=== PATIENT | female | born 1955 ===

== ENCOUNTER 2024-08-08 10:37 | Emergency (ER) | payer MEDICARE, SELFPAY ==
--- NOTE | ~2024-08-08 | CT_ITS ---
EXAMINATION: CT ABDOMEN AND PELVIS WITH CONTRAST CLINICAL INFORMATION: Right upper quadrant pain. Status post cholecystectomy. COMPARISON: None available. TECHNIQUE: Multidetector volumetric images were obtained from the superior aspect of the liver through the pubic symphysis following administration 85 mL of Omnipaque 350 intravenous contrast. Sagittal and coronal reformatted images were obtained on the technologist's workstation. Oral contrast: No This CT examination was performed using dose optimization techniques as appropriate, variously including the following: *Automated exposure control *Adjustment of mA and/or kV according to patient size (this includes techniques or standardized protocols for targeted exams where dose is matched to indication/reason for exam; i.e. extremities or head) *Use of iterative reconstruction technique. DLP: 602 mGy centimeter. FINDINGS: LUNG BASES: Atelectasis, lung bases. LIVER, GALLBLADDER, AND BILIARY TREE: There is a 1.9 cm fluid density at the gallbladder fossa. Mild intrahepatic biliary ductal dilatation. The portal veins, hepatic veins and intrahepatic portion of the IVC are patent. Liver measures 17 cm. Cholecystectomy. Common bile duct measures 4 mm. No gross intraluminal hyperdensity. PANCREAS: No focal lesion. No peripancreatic fluid collection. No main pancreatic ductal dilatation. SPLEEN: 9 cm. No focal lesion. ADRENAL GLANDS: No nodular lesions. KIDNEYS AND URETERS: No hydronephrosis. No gross nephrolithiasis. No gross renal mass. Normal enhancement pattern. BLADDER: Fluid-filled nearly collapsed. GASTROINTESTINAL TRACT: Small hiatal hernia. Gas and fluid-filled mildly prominent proximal jejunal loops. Edema pattern/wall thickening in the gastric antrum. No intestinal obstruction pattern. The terminal ileum is normal. I cannot clearly identify the appendix, no mesocecum edema pattern. No pneumoperitoneum. Few scattered diverticula, sigmoid colon and descending colon. No overt ascites. Mild mesenteric edema pattern. ABDOMINAL WALL: Small fat-containing umbilical hernia. LYMPH NODES: No specific prominent mesenteric. VASCULAR: Throughout the abdominal aorta wall and iliac arteries. No gross aneurysm or dissection abdominal aorta. PELVIC VISCERA: 1 cm fat density in the inferior aspect of the left adnexa and in proximity to the inferior sigmoid colon wall. OSSEOUS STRUCTURES: Sclerosis and vacuum phenomenon both sacroiliac joints. Grade 1 anterolisthesis L4-5 on a degenerative basis. Marginal osteophyte formation and decreased intervertebral disc height and vacuum phenomenon, L5-S1. Osteopenia versus osteoporosis. Probable intraosseous hemangioma, T10 vertebra. CT/CT abdomen pelvis w IV con IMPRESSION: Concerning phlegmon versus abscess versus biloma, gallbladder fossa/surgical site. Regional ileus. Peptic ulcer disease, gastric antrum cannot be excluded. Diverticular disease, left hemicolon. Small fat-containing umbilical hernia. Questionable dermoid, left adnexa. Multilevel thoracolumbar spondylosis resulting in grade 1 anterolisthesis L4-5. Fleischner guidelines were followed. Electronically signed by: Jere Castillo MD 08/08/2024 12:45 PM EDT
[2024-08-08 10:44] VITALS: BP 196/77; PULSE 83; RESP 18; TEMP 36.9; O2SAT 95; BMI 27.4
--- NOTE | 2024-08-08 10:51 | ECG_ITS ---
Test Reason : upper ABD pain Blood Pressure : */* mmHG Vent. Rate : 85 BPM Atrial Rate : 85 BPM P-R Int : 144 ms QRS Dur : 64 ms QT Int : 374 ms P-R-T Axes : 27 -5 61 degrees QTcB Int : 445 ms Normal sinus rhythm Normal ECG No previous ECGs available Referred By: Generic ED Physician Electronically Signed By: COLT SHARMA MD
[2024-08-08 11:02] LABS: MANUAL DIFF FLAG NO
[2024-08-08 11:05] LABS: Basophils Absolute Auto 0.1 X10*3/uL (0.0-0.2); Basophils Percent Auto 0.8 % (0-2); Eosinophils Absolute Auto 0.4 X10*3/uL (0.0-0.4); Hematocrit 42.9 % (37.0-47.0); Hemoglobin 13.4 g/dl (12.0-16.0); Imm Gran Abs Auto 0.04 X10*3/uL (0.00-0.03); Imm Gran Pct Auto 0.5 % (0.0-0.4); Lymphocytes Absolute Auto 2.4 X10*3/uL (1.2-4.9); Lymphocytes Percent Auto 28.2 % (20-40); Mean Corpuscular HGB Conc 31.2 g/dl (31.0-35.0); Mean Corpuscular Hemoglobin 27.6 pg (27.0-33.0); Mean Corpuscular Volume 88.3 fL (80.0-98.0); Monocytes Absolute Auto 0.6 X10*3/uL (0.1-1.2); Monocytes Percent Auto 7.2 % (2-11); Neutrophils Percent Auto 58.3 % (45-73); Platelet Count 247 X10*3/uL (160-400); Red Blood Count 4.86 X10*6/uL (4.20-5.50); Red Cell Distribution Width 14.3 % (11.0-16.0); White Blood Count 8.6 X10*3/uL (4.8-10.8)
[2024-08-08 11:19] LABS: Appearance Urine Clear; Color Urine Dark Yellow; Glucose Urine UA Negative (Negative); Leukocyte Esterase Urine Negative (Negative); Nitrite Urine Negative (Negative); Urine Blood Negative (Negative); Urine Ketones Trace mg/dL (Negative); Urine Protein Trace mg/dL (Neg-Trace)
[2024-08-08 11:22] LABS: Alanine Aminotransferase 33 U/L (0-31); Albumin Level 4.1 g/dL (3.5-5.0); Alkaline Phosphatase 114 U/L (39-117); Anion Gap 11 (12-20); Aspartate Amino Transferase 56 U/L (5-31); Bilirubin Direct 0.4 mg/dL (0.0-0.5); Bilirubin Total 0.8 mg/dL (0.0-1.0); Blood Urea Nitrogen 11 mg/dL (9-16); Calcium 9.3 mg/dL (8.4-10.2); Carbon Dioxide 27 mmol/L (22-29); Chloride 108 mmol/L (96-108); Creatinine Clr Calc Pharmacy 56.2; Estimated Glomerular Filt Rate 54; Glucose Random 98 mg/dL (60-115); Lipase 25 U/L (8-78); Potassium 3.9 mmol/L (3.3-5.1); Sodium 142 mmol/L (135-145); Total Protein 6.9 g/dL (6.5-8.0)
[2024-08-08 11:28] LABS: Bacteria Urine None Seen (None Seen); Calcium Oxalate Crystals Urine Present; RBC Urine 0-2 /HPF (0-2); WBC Urine 0-5 /HPF (0-5)
[2024-08-08 11:46] LABS: Troponin-I High Sensitivity < 2.7 ng/L (<3.5-17.0)
--- NOTE | 2024-08-08 11:48 | ED_ITS ---
HPI - Abdominal Pain General Chief Complaint: Abdominal Pain Stated Complaint: Recent gallbladder surgery, abd pain Time Seen by Provider: 08/08/24 11:24 Source: patient and family Mode of arrival: ambulatory Limitations: no limitations History of Present Illness ED Provider: DR. Patten HPI narrative: 69-year-old female came in for evaluation of right-sided abdominal pain. s/p laparoscopic emergency cholecystectomy on 07/13, as reported by the patient that the surgery was complicated with severely infected gallbladder and there is gallbladder stone spill during the surgery, has been evaluated by the surgeon post surgically in patient was healing okay, until today patient had a severe right side abdominal pain with nausea that lasted for about 1-2 hours now patient reported improvement of her symptoms. Related Data Allergies Allergy/AdvReac Type Severity Reaction Status Date / Time Penicillins [PCN] Allergy Rash Verified 08/08/24 10:48 Review of Systems Review of Systems All other systems are reviewed and are negative Constitutional: Reports as per HPI and Reports no additional constitutional complaints Eyes: Reports as per HPI and Reports no additional eye complaints Reports system reviewed and no additional complaints, except as documented Cardiovascular: Reports as per HPI and Reports no additional cardiovascular complaints Respiratory: Reports as per HPI and Reports no additional respiratory complaints Gastrointestinal: Reports as per HPI and Reports no additional gastrointestinal complaints Genitourinary: Reports no additional female genitourinary complaints Musculoskeletal: Reports no additional musculoskeletal complaints Skin/Breast: Reports system reviewed and no additional complaints, except as docu Psychiatric: Reports no additional psychiatric complaints Endocrine: Reports no additional endocrine complaints Hematologic/Lymphatic: Reports no additional hematologic/lymphatic complaints Allergic/Immunologic: Reports no additional allergic/immunologic complaints Reports system reviewed and no additional complaints, except as documented and Reports Abnormal speech present [facility] Social History Social History Smoked in Last 30 Days: No Use of substances other than those prescribed or required for medical reasons: No Advance Directives: No Advance Directives Information Provided: No Physical Exam ED Vital Signs: Vital Signs - 24 hr 08/08/24 10:44 08/08/24 12:00 Temperature 98.4 F 97.8 F Pulse Rate 83 83 Respiratory Rate 18 12 Blood Pressure 196/77 H 160/71 H Pulse Oximetry 95 96 Oxygen Delivery Method Room Air Room Air BMI result Body Mass Index 27.4 Vital signs have been reviewed and appear to be correct. Blood pressure elevated. Heart rate normal. Respiratory rate normal. Temperature normal. Oxygen saturation normal. Appearance: Alert. Oriented X3. No acute distress. Head: Normal external exam. Normocephalic. Atraumatic. No Frey signs noted. No raccoon eyes noted Eyes: PERRLA. EOMI. Conjunctiva and sclera normal. Eyelids normal. ENT: TM's Normal. Pharynx normal. Uvula midline. Moist mucous membranes. No trismus noted. No drooling noted. No muffled voice noted. Neck: Normal inspection. Neck supple. FROM. No adenopathy. Thyroid Normal. No meningeal signs. No neck mass noted. CVS: Normal heart rate and rhythm. Heart sound normal. No murmurs noted. Pulses normal throughout. Respiratory: No respiratory distress. Painless inspiration. Breath sounds normal. No wheezes/rales/rhonchi noted. Chest nontender. No accessory muscle usage noted or decreased air movement noted. Abdomen: Soft and nontender. Bowel sounds normal in all 4 quadrants. No distention noted. No organomegaly noted. No visible injury noted. Back: No CVA tenderness. Full range of motion noted. Skin: Skin warm and dry. Normal skin color. Normal skin turgor. No rashes/lesions/lacerations noted. Extremities: No lower extremity edema. Extremities exhibit normal range of motion. Extremities nontender. Neuro: Oriented X 3. Cranial nerve exam: II-XII are grossly intact No motor deficit. No sensory deficit. Reflexes normal. Course Reevaluation(s) Reevaluation #1: Patient feels much better, no chest pain, no abdominal pain, normal WBCs, no fever, no SIRS criteria, repeat abdominal exam shows no abdominal tenderness patient stated that her abdominal exam has change significantly in the past hour now it is much better. Patient wanted to go home. CT abdomen pelvis with IV contrast is showing with a seroma, abscess, or biloma CT findings were discussed with the patient patient will call the surgeon today and review the CT with him. Abscess is very unlikely diagnosis in this case with normal vital signs and normal WBCs, and absence of abdominal pain. patient was instructed to call her surgeon today and review CT report with him. Time: 13:32 Medical Decision Making Differential Diagnosis Differential Diagnoses: The differential diagnosis associated with the presentation includes (Postoperative hemorrhage, postoperative abscess, intra- abdominal bleed less likely, obstructed intrahepatic bile duct, ACS.) Admission/Observation Consideration of admission/observation: Escalation of care including admission/observation considered Lab Data MDM Lab Attestation statement: I reviewed the patient's lab results. 08/08/24 10:59 08/08/24 10:59 Labs: Lab Results 08/08/24 08/08/24 Range/Units 10:59 11:11 WBC 8.6 (4.8-10.8) X10*3/uL RBC 4.86 (4.20-5.50) X10*6/uL Hgb 13.4 (12.0-16.0) g/dl Hct 42.9 (37.0-47.0) % MCV 88.3 (80.0-98.0) fL MCH 27.6 (27.0-33.0) pg MCHC 31.2 (31.0-35.0) g/dl RDW 14.3 (11.0-16.0) % Plt Count 247 (160-400) X10*3/uL MPV 11.0 (9.4-12.3) fL Immature Gran % (Auto) 0.5 H (0.0-0.4) % Neut % (Auto) 58.3 (45-73) % Lymph % (Auto) 28.2 (20-40) % [place] % (Auto) 7.2 (2-11) % Eos % (Auto) 5.0 H (0-4) % Baso % (Auto) 0.8 (0-2) % Lymph # (Auto) 2.4 (1.2-4.9) X10*3/uL [place] # (Auto) 0.6 (0.1-1.2) X10*3/uL Eos # (Auto) 0.4 (0.0-0.4) X10*3/uL Baso # (Auto) 0.1 (0.0-0.2) X10*3/uL Abs Immat Gran (auto) 0.04 H (0.00-0.03) X10*3/uL Absolute Neuts (auto) 5.0 (2.0-8.3) x10*3/uL Absolute Nucleated RBC 0.000 (0.0-0.012) X10*3/uL Nucleated RBC % (auto) 0.0 (0.0-0.2) /100WBC Sodium 142 (135-145) mmol/L Potassium 3.9 (3.3-5.1) mmol/L Chloride 108 (96-108) mmol/L Carbon Dioxide 27 (22-29) mmol/L Anion Gap 11 L (12-20) BUN 11 (9-16) mg/dL Creatinine 1.01 (0.5-1.4) mg/dL Estim Creat Clear Calc 56.2 Estimated GFR 54 Random Glucose 98 (60-115) mg/dL Calcium 9.3 (8.4-10.2) mg/dL Total Bilirubin 0.8 (0.0-1.0) mg/dL Direct Bilirubin 0.4 (0.0-0.5) mg/dL AST 56 H (5-31) U/L ALT 33 H (0-31) U/L Alkaline Phosphatase 114 (39-117) U/L Troponin I High Sens < 2.7 (<3.5-17.0) ng/L Total Protein 6.9 (6.5-8.0) g/dL Albumin 4.1 (3.5-5.0) g/dL Lipase 25 (8-78) U/L Urine Color Dark Yellow Urine Appearance Clear Urine pH 5.0 (5.0-9.0) Ur Specific [place] 1.020 (1.005-1.025) Urine Protein Trace (Neg-Trace) mg/dL Urine Glucose (UA) Negative (Negative) mg/dL Urine Ketones Trace (Negative) mg/dL Urine Blood Negative (Negative) Urine Nitrite Negative (Negative) Ur Leukocyte Esterase Negative (Negative) Urine RBC 0-2 (0-2) /HPF Urine WBC 0-5 (0-5) /HPF Ur Squamous Epith Cells 3-5 (0-2) /HPF Calcium Oxalate Crystal Present Urine Bacteria None Seen (None Seen) Hyaline Casts 11-20 (0-2) /LPF Independent Interpretation I performed an independent interpretation of an: CT Scan (Abdomen and pelvis:Concerning phlegmon versus abscess versus biloma, gallbladder fossa/surgical site. Regional ileus. Peptic ulcer disease, gastric antrum cannot be excluded. Diverticular disease, left hemicolon. Small fat- containing umbilical hernia. Questionable dermoid, left adnexa. Mu) Radiology Impression Discussion of test interpretation with radiology: I have reviewed the radiologist's reading. Medications Administered Discontinued Medications Generic Name Dose Route Start Last Admin Trade Name Joanna PRN Reason Stop Dose Admin Iohexol 100 ml 08/08/24 12:12 08/08/24 12:13 Iohexol 350 Mg/Ml 100 Ml Infus..Btl IV 08/08/24 12:13 85 ml ONCE ONE Administration Discharge Plan Discharge Clinical Impression: Abdominal pain Patient Disposition: Home, Self-Care Instructions: Abdominal Pain (ED) Additional Instructions: Call your surgeon as we discussed and reviewed the CT report with him. Seek immediate medical attention for any fever, chills, increased abdominal pain. Print Language: Estonian
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
[2024-08-08 12:00] VITALS: BP 160/71; PULSE 83; RESP 12; TEMP 36.6; O2SAT 96
[2024-08-08] MEDS: iohexoL 350 MG/ML 100 ML INFUS..BTL IV (12:13)
[2024-08-08 13:50] VITALS: BP 104/81; PULSE 76; RESP 13; O2SAT 99
[2024-08-08 13:58] VITALS: BP 104/81; PULSE 76; RESP 13; TEMP 36.9; O2SAT 99
== END 2024-08-08 13:59 | disposition home or self-care (01) ==
PROVIDERS: Emergency Provider Emergency Medicine
DX: R10.2 Pelvic and perineal pain (principal); Z79.899 Other long term (current) drug therapy
CPT/HCPCS: 36415; 74177; 80053; 81001; 82248; 83690; 84484; 85025; 93005; 99285; Q9967

== ENCOUNTER → 2024-08-08 10:51 | Outpatient (BNV) | payer MEDICARE, SELFPAY | PROVIDERS: Emergency Provider Emergency Medicine; Visit Provider Internal Medicine Cardiovascular Disease | DX: R10.10 Upper abdominal pain, unspecified (principal) | CPT/HCPCS: 93010 ==

== ENCOUNTER → 2024-08-08 11:44 | Outpatient (BNV) | payer MEDICARE, SELFPAY | PROVIDERS: Emergency Provider Emergency Medicine; Visit Provider Radiology Diagnostic Radiology | DX: K82.1 Hydrops of gallbladder (principal) | CPT/HCPCS: 74177 ==